=== PATIENT | female | born 1950 | race African-American/Black ===

== ENCOUNTER 2016-09-03 20:49 | Emergency (ER) | payer MEDICAID | END 2016-09-04 00:40 | disposition home or self-care (01) | LOC: D.ER 20:49 | DX: S11.95XA Open bite of unspecified part of neck, initial encounter (principal); M54.12 Radiculopathy, cervical region ==

== ENCOUNTER 2016-11-12 21:44 | Emergency (ER) | payer MEDICAID | END 2016-11-12 23:51 | disposition left against medical advice (07) | LOC: D.ER 21:44 | DX: R05 Cough (principal) ==

== ENCOUNTER 2016-11-17 22:14 | Emergency (ER) | payer MEDICAID ==
[2016-11-18 01:09] LABS: HEMOGLOBIN 12.3 g/dL (12-16); LYMPHOCYTES 22.7 % (15-50); MCH 28.2 pg (26.0-34.0); MCHC 32.4 g/dL (31.0-37.0); MCV 87.2 fL (80.0-100.0); MEAN PLATELET VOLUME 10.8 fL (7.4-10.4); NEUTROPHILS 71.4 % (40-80); PLATELET COUNT 412 10x3/uL (130-400); RBC 4.36 10x6/uL (4.00-5.40); RDW 15.2 % (11.5-14.5); WBC 8.4 10x3/uL (4.8-10.8)
[2016-11-18 01:21] LABS: ALBUMIN 3.7 g/dL (3.4-5.0); ANION GAP 12.9 mmol/L (8-16); BILIRUBIN - TOTAL 0.19 mg/dL (0.2-1.3); CALCIUM 9.5 mg/dL (8.5-10.1); CARBON DIOXIDE 29.8 mmol/L (21.0-32.0); CREATININE - SERUM 1.7 mg/dL (0.6-1.3); POTASSIUM - SERUM 3.7 mmol/L (3.5-5.1); PROTEIN - SERUM 7.9 g/dL (6.4-8.2)
== END 2016-11-18 06:38 | disposition home or self-care (01) ==
LOC: D.ER 22:14
PROVIDERS: Family Medicine
DX: J20.9 Acute bronchitis, unspecified (principal); M54.12 Radiculopathy, cervical region; E11.9 Type 2 diabetes mellitus without complications; Z79.4 Long term (current) use of insulin

== ENCOUNTER 2016-12-29 15:51 | Emergency (ER) | payer MEDICAID | END 2016-12-29 20:40 | disposition home or self-care (01) | LOC: D.ER 15:51 | DX: H66.91 Otitis media, unspecified, right ear (principal); J06.9 Acute upper respiratory infection, unspecified; H92.01 Otalgia, right ear ==

== ENCOUNTER 2017-02-11 13:05 | Emergency (ER) | payer MEDICAID | END 2017-02-11 15:05 | disposition home or self-care (01) | LOC: D.ER 13:05 | DX: M26.602 Left temporomandibular joint disorder, unspecified (principal); H92.02 Otalgia, left ear ==

== ENCOUNTER 2017-03-04 00:32 | Emergency (ER) | payer MEDICAID | END 2017-03-04 01:35 | disposition home or self-care (01) | LOC: D.ER 00:32 | DX: J02.9 Acute pharyngitis, unspecified (principal); E11.9 Type 2 diabetes mellitus without complications ==

== ENCOUNTER 2017-03-15 13:17 | Emergency (ER) | payer MEDICAID | END 2017-03-15 15:30 | disposition home or self-care (01) | LOC: D.ER 13:17 | DX: J02.9 Acute pharyngitis, unspecified (principal); R05 Cough; E11.9 Type 2 diabetes mellitus without complications ==

== ENCOUNTER 2017-03-21 16:02 | Emergency (ER) | payer MEDICAID | END 2017-03-21 18:28 | disposition home or self-care (01) | LOC: D.ER 16:02 | DX: S82.001A Unspecified fracture of right patella, initial encounter for closed fracture (principal); W01.0XXA Fall on same level from slipping, tripping and stumbling without subsequent striking against object, initial encounter; Y93.89 Activity, other specified; Y92.019 Unspecified place in single-family (private) house as the place of occurrence of the external cause; M25.561 Pain in right knee ==

== ENCOUNTER 2017-04-08 20:51 | Emergency (ER) | payer MEDICAID | END 2017-04-08 22:35 | disposition home or self-care (01) | LOC: D.ER 20:51 | DX: J01.90 Acute sinusitis, unspecified (principal); J20.9 Acute bronchitis, unspecified; S76.811A Strain of other specified muscles, fascia and tendons at thigh level, right thigh, initial encounter; X58.XXXA Exposure to other specified factors, initial encounter; Y93.89 Activity, other specified; Y92.89 Other specified places as the place of occurrence of the external cause; R05 Cough; R51 Headache ==

== ENCOUNTER → 2017-04-14 09:16 | Outpatient (CLI) | payer MEDICAID | END | disposition home or self-care (01) | LOC: D.MRI 09:16 | DX: C32.9 Malignant neoplasm of larynx, unspecified (principal); R13.10 Dysphagia, unspecified ==

== ENCOUNTER 2017-07-01 00:07 | Emergency (ER) | payer MEDICARE, BC | END 2017-07-01 00:57 | disposition home or self-care (01) | LOC: D.ER 00:07 | DX: R06.00 Dyspnea, unspecified (principal); J44.1 Chronic obstructive pulmonary disease with (acute) exacerbation; E66.09 Other obesity due to excess calories; R00.0 Tachycardia, unspecified ==

== ENCOUNTER 2017-08-05 18:38 | Emergency (ER) | payer MEDICARE, BC | END 2017-08-05 22:35 | disposition home or self-care (01) | LOC: D.ER 18:38 | DX: J44.1 Chronic obstructive pulmonary disease with (acute) exacerbation (principal) ==

== ENCOUNTER 2017-08-30 13:07 | Emergency (ER) | payer MEDICARE ==
[2017-08-30 13:51] LABS: BASOPHILS 0.8 % (0-2); EOSINOPHILS 4.6 % (0-7); HEMATOCRIT 32.6 % (36.0-48.0); HEMOGLOBIN 9.4 g/dL (12-16); IMMATURE GRANULOCYTES 0.1 % (0-5); LYMPHOCYTES 18.2 % (15-50); MCH 21.9 pg (26.0-34.0); MCHC 28.8 g/dL (31.0-37.0); MCV 75.8 fL (80.0-100.0); MONOCYTES 6.2 % (2-11); NEUTROPHILS 70.1 % (40-80); PLATELET COUNT 407 10x3/uL (130-400); RDW 18.2 % (11.5-14.5); WBC 7.2 10x3/uL (4.8-10.8)
[2017-08-30 14:24] LABS: ALBUMIN 3.6 g/dL (3.4-5.0); ANION GAP 14.9 mmol/L (8-16); BILIRUBIN - TOTAL 0.24 mg/dL (0.2-1.3); CALCIUM 8.7 mg/dL (8.5-10.1); CARBON DIOXIDE 26.1 mmol/L (21.0-32.0); PROTEIN - SERUM 7.6 g/dL (6.4-8.2)
== END 2017-08-30 17:11 | disposition home or self-care (01) ==
LOC: D.ER 13:07
PROVIDERS: Emergency Medicine
DX: J18.9 Pneumonia, unspecified organism (principal); J44.9 Chronic obstructive pulmonary disease, unspecified

== ENCOUNTER 2017-10-13 17:37 | Emergency (ER) | payer MEDICARE | END 2017-10-13 23:15 | disposition home or self-care (01) | LOC: D.ER 17:37 | DX: J44.1 Chronic obstructive pulmonary disease with (acute) exacerbation (principal) ==